=== PATIENT | male | born 1960 | race Caucasian/White ===

== ENCOUNTER → 2017-07-03 | Day surgery (SDC) | payer MEDICARE, MEDICAID ==
[~2017-07-03] MED LIST: Dexamethasone 20 MG/5 ML VIAL ONE; Fentanyl 100 MCG/2 ML VIAL ONE; Lidocaine 1% PF 5 ML VIAL ONE; PROPOFOL 200 MG/20 ML VIAL ONE; Promethazine HCl 25 MG/ML VIAL ONE; Succinylcholine Chloride 20 MG/ML 10 ml SYRINGE FS ONE
--- NOTE | 2017-07-03 19:28 | RAD ---
PA AND LATERAL VIEWS OF THE CHEST: History: Food stuck in the chest, chest pain. FINDINGS: The heart size is normal. The lungs are expanded without focal areas of consolidation, pneumothorax, or pleural effusions. No radiopaque foreign body is seen. There are degenerative changes in the spine . IMPRESSION: No radiographic evidence of acute cardiopulmonary process. POS: [facility]
[2017-07-03 19:56] LABS: #Basophils 0.1 thou/uL (0.0-0.2); #Eosinphils 0.2 thou/uL (0.0-0.7); #Lymphocytes 1.7 thou/uL (1.20-3.40); #Monocytes 0.6 thou/uL (0.11-0.59); #Neutrophils 8.3 thou/uL (1.40-6.50); %Basophils 0.7 % (0.0-1.0); %Eosinophils 1.5 % (0.0-10.0); %Lymphocytes 15.5 % (21.0-51.0); %Monocytes 5.4 % (0.0-10.0); %Neutrophils 76.9 % (42.0-75.0); Hemoglobin 13.2 g/dL (14.0-18.0); Mean Corpuscular HGB CONC 34.1 g/dL (32.0-36.0); Mean Corpuscular Hemoglobin 31.2 pg (27.0-31.0); Mean Corpuscular Volume 91.3 fl (80.0-94.0); Mean Platelet Volume 8.4 fL (7.4-10.4); Platelet Count 149 thou/uL (130-400); RBC Distribution Width 13.1 % (11.5-14.5); Red Blood Cell (RBC) Count 4.23 mill/uL (4.70-6.10); White Blood Cell (WBC) Count 10.8 thou/uL (4.8-10.8)
[2017-07-03 20:01] LABS: INR-International Normal Ratio 1.1; Prothrombin Time 14.4 SEC (12.0-14.7)
[2017-07-03 20:18] LABS: ALT (SGPT) 20 U/L (8-55); AST (SGOT) 18 U/L (5-34); Alkaline Phosphatase 68 U/L (40-150); Anion Gap 12 mmol/L (10-20); BUN (Urea Nitrogen) 12 mg/dL (8.4-25.7); Bilirubin, Total 0.3 mg/dL (0.2-1.2); Calc. Creatinine Clearance 0 mL/min (70-130); Carbon Dioxide 24 mmol/L (22-29); Chloride 108 mmol/L (98-107); Estimated GFR-MDRD 87; Globulin 2.7 g/dL (2.4-3.5); Glucose 88 mg/dL (70-105); Protein, Total 6.7 g/dL (6.0-8.3); Sodium 140 mmol/L (136-145)
--- NOTE | 2017-07-03 21:17 | HP ---
DATE OF CONSULTATION: 07/03/2017 REASON FOR CONSULTATION: Food impaction. HISTORY OF PRESENT ILLNESS: Patient is a 59-year-old male with past medical history of esophageal st ricture and food bolus impaction in 04/2014, osteoarthritis and recent urethral surgery presenting wi th complaints of dysphagia. He states that he was in his usual state of health until 3:00 earlier to day when he was eating a TV dinner and swallowed a meatball that was part of the meal. Shortly after swallowing, he had a sensation that the food got stuck at the level of the xiphoid process. He subs equently tried to drink increasing amounts of both soda and water, both of which he immediately vomit ed. At the current time, he has been unable to tolerate his secretions and has been spitting periodi leighton into an emesis bag at bedside. Currently, denies any nausea, vomiting, fevers, chills, shortne ss of breath, abdominal pain, hematemesis, melena, hematochezia or weight loss. Of note, he had clem lar episode in 04/2014 when he was seen at [facility] for food bolus impaction. EGD at that time showed a small esophageal stricture in the distal esophagus for which the food was pushed into the stomach. Repeat EGD performed on 05/08/2014 showed a benign appearing stricture at 40 cm past th e incisors. It was dilated with Savary dilation up to 18 mm in size. Per patient, after which he cervantes d no additional problems with food bolus impaction until this hospitalization. REVIEW OF SYSTEMS: A 10-category review of systems was obtained with all responses negative except f or the pertinent positives as well as in the HPI. PAST MEDICAL HISTORY: As per HPI. PAST SURGICAL HISTORY: Bilateral knee surgery, back surgery (2009), recent urethral surgery and spin al fusion (2009). FAMILY HISTORY: Denies any GI malignancy. SOCIAL HISTORY: He continues to chew tobacco daily, but denies any alcohol or illicit drug use. OUTPATIENT MEDICATIONS: Ketorolac, levofloxacin and an anti-inflammatory medication, cannot recall. ALLERGIES: SULFA (hives). PHYSICAL EXAMINATION: VITAL SIGNS: Not vital signs are available for review. GENERAL: The patient is lying in on stretcher in no acute distress. Alert and oriented x4. NECK: Supple. No JVD noted. CARDIOVASCULAR: Regular rate and rhythm. No discernible murmurs, gallops or rubs. RESPIRATORY: Clear to auscultation bilaterally with mild resistance of air flow in the bilateral low er lung pal. ABDOMEN: Normoactive bowel sounds, soft, nontender, and nondistended. EXTREMITIES: No cyanosis, clubbing or edema. LABORATORY DATA: No current studies are available for review. IMAGING DATA: Chest x-ray obtained on 07/03/2017 showed no radiographic evidence of acute cardiopulm onary process. ASSESSMENT AND PLAN: The patient is a 57-year-old male with past medical history of osteoarthritis, recent urethral surgery and esophageal stricture, presenting with food impaction and person. Food impaction: Patient is presenting with a history of food impaction in 04/2014 with the findings of a small esophageal sphincter stricture at 40 cm past the incisors. Ultimately, this was dilated t o 18 mm in 05/2014 with no symptoms following that. However, earlier today, he did not adequately ch ew his food with the food getting caught at the level of the xiphoid process consistent with a food b olus impaction. RECOMMENDATIONS: 1. Keep patient n.p.o. 2. We will plan for urgent EGD for evaluation of the food bolus and foreign body removal. 3. Further recommendations to follow EGD. We will continue to follow. Please call with any questions.
--- NOTE | 2017-07-03 21:34 | OP ---
DATE OF PROCEDURE: 07/03/2017 PROCEDURE: Esophagogastroduodenoscopy with foreign body removal. INDICATION FOR PROCEDURE: Food impaction. DESCRIPTION OF PROCEDURE: After the risks and benefits of the procedure were explained to the patien t including risks of bleeding, infection, perforation, reaction to anesthesia and/or pain, informed c onsent was obtained. The patient was then taken to the endoscopy suite where deep sedation per [facility] al anesthesia was administered with endotracheal intubation via anesthesia support. After the patien t was placed on mechanical ventilation, the standard gastroscope was then introduced into the mouth w ith intubation of the esophagus, stomach and the proximal small intestine with the findings listed be low. The patient tolerated the procedure well with no immediate perioperative complications. FINDINGS: ESOPHAGUS: Normal appearing mucosa was seen in the proximal and mid esophagus. In the distal esopha jaron, there were 2 large pieces of meat seen, one that was free floating and the other one was impacte d at the GE junction. Using gentle pressure on both pieces of meat, they were slowly advanced into t stomach without difficulty or tension. Evaluation of the mucosa afterwards showed slight ulcerati on in a circumferential manner just proximal to the GE junction without evidence of active/recent ble eding. There was no evidence of stenosis or stricture at this particular location. Both the diaphra gmatic pinch and GE junction were both well seen at approximately 40 cm past the incisors. STOMACH: Normal appearing mucosa was seen in the cardia, fundus, body, antrum and incisura. There w as no evidence of erosions, ulcerations, mass, lesions or active/recent bleeding. DUODENUM: There was normal appearing mucosa in both the duodenal bulb and second portion of the duod enum. There was no evidence of erosions, ulcerations, mass, lesions or active/recent bleeding. IMPRESSION: 1. Large 2 pieces of retained meat were seen in the distal esophagus, one of which was impacted at t GE junction, now status post gentle pressure and placement into the stomach. 2. Circumferential ulceration noted at the impaction site just proximal to the GE junction. 3. Otherwise, normal upper endoscopy. RECOMMENDATIONS: 1. Would encourage the patient to adequately chew his food prior to swallowing. 2. Given lack of evidence of esophageal stricture, a repeat esophageal dilation is not necessarily i ndicated at this time. 3. Would place the patient on a liquid diet for the next 24 hours and then advance diet as tolerated . 4. The patient to follow up in the GI Clinic with Dr. Neely in 2 weeks for further evaluation of dysp hagia.
== END ==
LOC: ERS 17:18 → SDC/OP 20:00 → ERS 21:50
PROVIDERS: ATTEND Internal Medicine
PROC: 0DC38ZZ Extirpation of Matter from Lower Esophagus, Via Natural or Artificial Opening Endoscopic (ICD-10-PCS; principal; 2017-07-03)
DX: T18.128A Food in esophagus causing other injury, initial encounter (principal); M19.90 Unspecified osteoarthritis, unspecified site; F17.220 Nicotine dependence, chewing tobacco, uncomplicated; Z79.1 Long term (current) use of non-steroidal anti-inflammatories (NSAID); Z79.899 Other long term (current) drug therapy; Z88.2 Allergy status to sulfonamides; Z88.5 Allergy status to narcotic agent; Z88.8 Allergy status to other drugs, medicaments and biological substances
CPT/HCPCS: 43247; 71046; 80053; 85025; 85610; J1610; 36415; J1100; J2001; J2550; J2704; J3010

== ENCOUNTER 2017-07-13 21:03 | Day surgery (SDC) | payer MEDICAID, MEDICARE ==
[~2017-07-13 21:03] MED LIST changes: -Dexamethasone 20 MG/5 ML VIAL ONE; -Fentanyl 100 MCG/2 ML VIAL ONE; -Lidocaine 1% PF 5 ML VIAL ONE; -Promethazine HCl 25 MG/ML VIAL ONE
--- NOTE | 2017-07-14 08:22 | OP ---
DATE OF PROCEDURE: 07/14/2017 PROCEDURE: Esophagogastroduodenoscopy with foreign object removal and balloon dilatation. PHYSICIAN: Morgan Mckeon M.D. MEDICATIONS: Given by Anesthesiology department. PREPROCEDURE DIAGNOSIS: Food impaction resulting in complete dysphagia. POSTPROCEDURE DIAGNOSES: 1. Partially hot dog impacted in distal esophagus. 2. A concentric tight esophageal stricture at 40 cm. PROCEDURE IN DETAIL: Written consent was obtained prior to procedure. After adequate sedation, the forward-viewing endoscope was advanced down the esophagus under direct vision. In the lower esophagus at 35 cm, a distal end of the hot dog measuring approximately 1.5 inch was noted. Using a snare, the hot dog was able to retrieve in two pieces. The food bolus which was completely removed. Repeat endoscopy performed showed a concentric tight stricture at approximately 39 cm from the incisors. A 15-18 mm balloon was then used to sequentially dilate the stricture initially at 15, then 16 and 1/2 , then to final 18 mm at 7 GLADIS. There was minor mucosal bleeding with good dilatation of the stricture. The endoscope was able to pass into the duodenum which appeared normal. Pulses patent. The gastric antrum, body, fundus, and cardia all appeared normal. The instrument was then fully removed. The patient tolerated the procedure well. ASSESSMENT: 1. Food impaction, status post retrieval. 2. Lower esophageal tight stricture, status post balloon dilatation up to 18 mm. RECOMMENDATIONS: 1. Prilosec 20 mg q. day. 2. The patient is advised to seek dental care attention to replace missing teeth for proper mastication. [facility]
== END 2017-07-14 01:00 | disposition home or self-care (01) ==
LOC: ERS 21:03 → SDC/OP 07-14 00:01
PROVIDERS: ATTEND Internal Medicine Gastroenterology
PROC: 0DC38ZZ Extirpation of Matter from Lower Esophagus, Via Natural or Artificial Opening Endoscopic (ICD-10-PCS; principal; 2017-07-14)
PROC: 0D738ZZ Dilation of Lower Esophagus, Via Natural or Artificial Opening Endoscopic (ICD-10-PCS; 2017-07-14)
DX: T18.128A Food in esophagus causing other injury, initial encounter (principal); K22.2 Esophageal obstruction; Z88.2 Allergy status to sulfonamides; Z88.5 Allergy status to narcotic agent; Z79.899 Other long term (current) drug therapy
CPT/HCPCS: 43247; 43249; 72050; 72156; 96374; 99284; J1610; A9579; J2704

== ENCOUNTER 2017-07-14 13:33 | Outpatient (CLI) | payer MEDICARE, MEDICAID ==
[~2017-07-14 13:33] MED LIST changes: +Gadobenate Dimeglumine 529 MG/1 ML (20ML VIAL) ONE; -PROPOFOL 200 MG/20 ML VIAL ONE; -Succinylcholine Chloride 20 MG/ML 10 ml SYRINGE FS ONE
--- NOTE | 2017-07-14 15:14 | RAD ---
FOUR VIEWS OF THE CERVICAL SPINE: COMPARISON: None. HISTORY: Left arm tingling and burning radiating down to the left fingers from the neck. FINDINGS: AP, lateral, flexion, and extension views of the cervical spine were performed. The patient is statu s post anterior fusion of C3 through C5. The vertebral bodies demonstrate normal height and alignmen t without fracture or subluxation. Alignment of the vertebral bodies is maintained in flexion and ex tension. Moderate osteophytes are seen in the lower cervical spine. IMPRESSION: Postsurgical changes and degenerative changes of the cervical spine as above. POS: [facility]
--- NOTE | 2017-07-14 16:12 | MRI ---
MRI CERVICAL SPINE WITH AND WITHOUT CONTRAST 07/14/17 HISTORY: Cervical fusion. Cervical radiculopathy. Right arm pain, tingling and burning. COMPARISON: None. TECHNIQUE: Cervical spine MRI is performed without intravenous gadolinium administration. Multisequential, multi planar imaging is preformed. FINDINGS: There is metallic susceptibility artifact due to anterior fusion plate at C3, C4 and C5. Disc prosthe sis at C3-4 and C4-5. Limited evaluation of the cervical vertebrae at C3, C4, and C5. Remaining cervi diana vertebral bodies have appropriate T1 marrow signal intensity. No evidence of fracture. No signifi cant STIR hyperintensity to suggest edema or ligamentous injury. No definite prevertebral soft tissue swelling. The visualized oral cavity is unremarkable. There is m inimal mucosal disease involving the visualized maxillary sinuses. The visualized brain parenchyma, cervicomedullary junction, cervical cord and the upper thoracic cord have a normal size and signal intensity. C2-C3: No significant disc osteophyte complex. No significant central canal stenosis or foraminal vonda rowing. C3-C4: No significant osteophyte complex. No significant central canal stenosis. Minimal bilateral fo raminal narrowing due to degenerative change of the uncovertebral joints. C4-C5: No significant osteophyte ridge. No significant central canal stenosis. Mild bilateral foramin al narrowing and degenerative change of the uncovertebral joint. C5-C6: There is a broad based disc osteophyte complex that abuts the thecal sac. There is mild centra l canal stenosis. Degenerative change in the right uncovertebral joint results in moderate to severe right foraminal narrowing. Mild left foraminal narrowing due to degenerative change of the uncoverteb ral joint. C6-C7: Broad based osteophyte complex with a central component deforming the ventral thecal sac. The ventral subarachnoid space is still maintained. Minimal finding of the cervical cord, without T2 hype rintensity of the cord. Mild central canal stenosis. Degenerative change in the bilateral facet hypertrophy results in moderate bilateral foraminal narrow ing. C7-T1: There is a broad based disc osteophyte complex without significant central canal stenosis. mil d right foraminal narrowing due to degenerative change of the uncovertebral joint. Left neural forame n is patent. IMPRESSION: 1. Postsurgical changes of the cervical spine as above. There is evidence of fusion hardware wit h metallic susceptibility artifact. 2. No abnormal enhancement of the visualized cord or brain parenchyma. 3. Degenerative changes of the cervical spine with varying degrees of central canal stenosis an d foraminal narrowing as detailed above. POS: [facility]
== END 2017-07-14 13:34 | disposition home or self-care (01) ==
LOC: SCSRAD 13:33
PROVIDERS: ATTEND Neurological Surgery
DX: M47.22 Other spondylosis with radiculopathy, cervical region (principal); Z98.1 Arthrodesis status; M99.81 Other biomechanical lesions of cervical region; M48.02 Spinal stenosis, cervical region
CPT/HCPCS: 72050; 72156